=== PATIENT | male | born 1970 | race Caucasian/White ===

== ENCOUNTER 2017-10-03 19:54 | Observation (INO) | payer OTHER ==
[~2017-10-03] VITALS: Ht 172.7 cm; Wt 93.4 kg
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
[2017-10-03] MEDS ORDERED: IOPAMIDOL 76% 75 ML INFUS BTL 75 ML ONE (20:31)
[2017-10-03 20:34] LABS: PLATELET COUNT, AUTOMATED 270 K/uL (150-450)
[2017-10-03 20:42] LABS: INR 0.91
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
[2017-10-03] MEDS ORDERED: OMEP-218 PO (21:37)
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
[2017-10-03] MEDS ORDERED: fentaNYL CITR 100 MCG/2 ML AMP IVP ONE (22:25)
[2017-10-03 22:48] VITALS: BP 142/91
[2017-10-03] MEDS: LR(*) 1000 ML BAG 1,000 ML IV PRN (23:35)
[2017-10-03] MEDS: APAP/HYDROCODONE 325/5 TAB PO PRN (23:36)
[2017-10-04] MEDS ORDERED: HYDROmorphone HCL 2 MG/ML SDV IVP ONE (02:25)
[2017-10-04 02:35] VITALS: BP 145/82
[2017-10-04] MEDS: HYDROmorphone HCL 2 MG/ML SDV IVP PRN ×2 (02:41→07:18)
[2017-10-04] MEDS: APAP/HYDROCODONE 325/5 TAB PO PRN ×4 (04:55→23:31)
--- NOTE | 2017-10-04 05:40 | RADIOLOGY IMAGING REPORT ---
FACILITY: [facility] PATIENT NAME: Nona Murray : 1970 MR: [id number] V: [id number] EXAM DATE: ORDERING PHYSICIAN: ATA ANGUIANO TECHNOLOGIST: Location: [facility] - [place] Patient: Nona Murray : 1970 Visit/Account:[id number] Date of Sevice: 10/04/2017 AP CHEST 10/04/2017 5:04 AM. INDICATION: Evaluate pneumothorax COMPARISON: Yesterday. FINDINGS: Lungs are well-expanded. There is no consolidation. There may be trace pneumothorax allowing the sup erior vena cava. No pleural effusion. Heart size is normal. Right clavicle fracture as previously seen. Right rib fractures better demonstrated on CT. IMPRESSION: Question trace right pneumothorax. Report Dictated By: Ever Toribio MD at 10/04/2017 5:33 AM Report E-Signed By: Ever Toribio MD at 10/04/2017 5:35 AM WSN:[id number]
[2017-10-04] MEDS: LR(*) 1000 ML BAG 1,000 ML IV PRN (07:34)
[2017-10-04 07:46] VITALS: BP 146/82
[2017-10-04 14:57] VITALS: BP 124/83
[2017-10-04 19:41] VITALS: BP 142/88
[2017-10-04] MEDS ORDERED: ALBUTEROL/IPRATROPIUM 3 ML NEB NEB PRN (22:05)
[2017-10-04 23:32] VITALS: BP 115/78
[2017-10-05 03:24] VITALS: BP 135/88
[2017-10-05] MEDS: APAP/HYDROCODONE 325/5 TAB PO PRN ×3 (03:36→11:47)
[2017-10-05 07:27] VITALS: BP 111/79
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
[2017-10-05] MEDS ORDERED: HYDR-4309 PO (09:33)
[2017-10-05 10:06] VITALS: Ht 172.7 cm; Wt 93.4 kg
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
== END 2017-10-05 09:31 | disposition home or self-care (01) ==
LOC: ER 20:19 → MED 21:44
PROVIDERS: ADMIT Surgery; ATTEND Surgery
DX: S42.021A Displaced fracture of shaft of right clavicle, initial encounter for closed fracture (principal); S22.41XA Multiple fractures of ribs, right side, initial encounter for closed fracture; S27.0XXA Traumatic pneumothorax, initial encounter; V87.7XXA Person injured in collision between other specified motor vehicles (traffic), initial encounter; J34.1 Cyst and mucocele of nose and nasal sinus; S06.0X9A Concussion with loss of consciousness of unspecified duration, initial encounter
CPT/HCPCS: 36415; 70450; 71045; 71260; 72125; 73000; 83605; 85025; 85610; 85730; 94640; 96374; 99285; A4565; G0378; J1170; J3010; J7120; J7620; L0172; Q9967; 82040; 82247; 82310; 82374; 82435; 82565; 82947; 84075; 84132; 84155; 84295; 84450; 84460; 84520